=== PATIENT | male | born 1960 | race African-American/Black ===

== ENCOUNTER 2016-07-13 13:19 | Emergency (ER) | payer OTHER ==
[~2016-07-13] VITALS: Ht 182.9 cm; Wt 95.3 kg
[2016-07-13] MEDS ORDERED: NKM (13:49)
[2016-07-13 14:10] VITALS: BP 118/85
--- NOTE | 2016-07-13 22:13 | Emergency Room Report ---
History of Present Illness General Chief Complaint: General Complaint Source: Patient Present Illness HPI The patient is a 56-year-old male presenting with right arm pain after donating plasma this morning. The patient states that the nurse may have infiltrated the vein. Pain is described as a 5/10 dull ache it is worse with touch. Patient has noticed bruising of the area. The patient denies radiating pain. Patient denies any other symptoms including fever, chills, headache, dizziness, numbness or tingling of the extremity Allergies: Coded Allergies: No Known Allergies (Unverified , 07/13/16) Patient History Past Medical History: see triage record Pertinent Family History: none Reviewed Nursing Documentation: PMH: Agreed, PSxH: Agreed Nursing Documentation-PMH Past Medical History: No Stated History Review of Systems All Other Systems: negative except mentioned in HPI Physical Exam Vital Signs Date Time Temp Pulse Resp B/P Pulse Ox O2 Delivery O2 Flow Rate FiO2 07/13/16 13:46 98.1 71 14 118/85 96 Room Air Sp02 EP Interpretation: reviewed, normal General Appearance: no apparent distress, alert, GCS 15, non-toxic Head: normocephalic, atraumatic Eyes: bilateral eye PERRL, bilateral eye normal inspection Musculoskeletal: back normal, normal range of motion, swelling - mild , tender - TTP over R antecubital region Neurologic: alert, oriented x3, responsive, motor strength/tone normal, sensory intact, speech normal Psychiatric: judgement/insight normal, memory normal, mood/affect normal, no suicidal/homicidal ideation Skin: normal turgor, other - Ecchymosis to the right antecubital region Lymphatic: no adenopathy Medical Decision Making PA Attestation Dr. Kellogg is my supervising physician. Patient management was discussed with my supervising physician Diagnostic Impression: Primary Impression: Intravenous infiltration ER Course The patient is a 56 a male presenting for right arm pain after donating plasma. Differential diagnosis considered: Plain infiltration, cellulitis, abscess, muscle tear, tendon injury Physical exam: Vitals are within normal limits. No apparent distress Right arm: There is mild edema and tenderness to palpation over antecubital region. Ecchymosis is noted. Full active range of motion. Ice is applied to the area and the patient will be discharged home. ER precautions are given Last Vital Signs Date Time Temp Pulse Resp B/P Pulse Ox O2 Delivery O2 Flow Rate FiO2 07/13/16 14:10 98.1 14 118/85 96 Room Air 07/13/16 13:46 71 Status: improved Disposition: HOME, SELF-CARE Condition: Improved Referrals: NON PHYSICIAN (PCP) Patient Instructions: IV Infiltration, [id number] Additional Instructions: I discussed my findings with the patient. All questions and concerns have been answered. Treatment and medication compliance have been addressed. I advised the patient that they need to follow up with PMD in 3-5 days. Return to ED if symptoms worsen, new symptoms arise, or if needed for any reason. Patient verbalized understanding of discharge instructions. MOISÉS COTTON Jul 13, 2016 22:13
== END 2016-07-13 14:10 | disposition home or self-care (01) ==
LOC: EMR 14:01
DX: T80.818A Extravasation of other vesicant agent, initial encounter (principal); Y84.8 Other medical procedures as the cause of abnormal reaction of the patient, or of later complication, without mention of misadventure at the time of the procedure; Y92.9 Unspecified place or not applicable; R60.0 Localized edema
CPT/HCPCS: 99282